=== PATIENT | female | born 1975 | race Caucasian/White ===

== ENCOUNTER → 2017-04-13 | Outpatient (CLI) | payer OTHER | END | disposition home or self-care (01) | LOC: RAD 17:41 | PROVIDERS: ATTEND Genetic Counselor, MS | DX: R29.810 Facial weakness (principal) | CPT/HCPCS: 70450 ==

== ENCOUNTER → 2017-05-25 | Outpatient (CLI) | payer OTHER ==
[~2017-05-25] MED LIST: OMNIPAQUE 350 MG/ML, 75ML BOTTLE ONE
== END | disposition home or self-care (01) ==
LOC: CFH 15:48 → EDSTATUS 16:00
PROVIDERS: ATTEND Psychiatry & Neurology Neurology
DX: M79.89 Other specified soft tissue disorders (principal); G70.01 Myasthenia gravis with (acute) exacerbation
CPT/HCPCS: 71260; Q9967

== ENCOUNTER 2017-07-21 05:14 | Inpatient (IN) | payer OTHER ==
[~2017-07-21] VITALS: Ht 160 cm; Wt 91.0 kg
[2017-07-21] MEDS ORDERED: IMMUNE GLOBULIN IV ONE (05:30)
[2017-07-21] MEDS ORDERED: ONDANSETRON 2MG/ML, 2ML IVPush PRN (05:30)
[2017-07-21] MEDS ORDERED: hydrALAzine 20 MG/ML, 1ML IVPush PRN (05:30)
[2017-07-21] MEDS ORDERED: TRAZODONE 50MG TABLET PO PRN (05:30)
[2017-07-21] MEDS ORDERED: EVACUATED CONTAINER IV ONE (05:30)
[2017-07-21] MEDS ORDERED: SERT50TA PO (05:47)
[2017-07-21] MEDS ORDERED: PYRI60TA2 PO ×2 (05:47→07:28)
[2017-07-21] MEDS ORDERED: prednisone PO (05:47)
[2017-07-21] MEDS ORDERED: TRAZ50TA18 PO (05:47)
[2017-07-21 05:55] VITALS: BP 121/72
[2017-07-21 07:13] VITALS: BP 106/70
[2017-07-21] MEDS: SODIUM CHLORIDE FLUSH 10ML SYR IVF SCH ×2 (09:00→21:24)
[2017-07-21] MEDS: OMEPRAZOLE 20 MG CAPSULE.DR PO SCH (09:07)
[2017-07-21] MEDS: PYRIDOSTIGMINE 60 MG TABLET PO SCH ×3 (09:07→21:23)
[2017-07-21] MEDS ORDERED: DIPHENHYDRAMINE 25 MG CAPSULE ONE (12:51)
[2017-07-21] MEDS: DIPHENHYDRAMINE 25 MG CAPSULE PO SCH (12:54)
[2017-07-21] MEDS: ACETAMINOPHEN 325 MG TABLET PO PRN ×2 (12:54→21:24)
[2017-07-21] MEDS ORDERED: DIPHENHYDRAMINE 25 MG CAPSULE PO ONE (13:00)
[2017-07-21 13:50] VITALS: BP 123/63
[2017-07-21 19:29] VITALS: BP 137/83
[2017-07-22 03:10] VITALS: BP 114/74
[2017-07-22] MEDS: OMEPRAZOLE 20 MG CAPSULE.DR PO SCH (08:15)
[2017-07-22 08:28] VITALS: BP 134/93
[2017-07-22] MEDS ORDERED: EVACUATED CONTAINER IVPB SCH (09:00)
[2017-07-22] MEDS ORDERED: ACETAMINOPHEN 325 MG TABLET PO SCH (09:00)
[2017-07-22] MEDS ORDERED: IMMUNE GLOBULIN IVPB SCH (09:00)
[2017-07-22] MEDS: SODIUM CHLORIDE FLUSH 10ML SYR IVF SCH ×2 (09:12→20:50)
[2017-07-22] MEDS: DIPHENHYDRAMINE 25 MG CAPSULE PO SCH (09:13)
[2017-07-22] MEDS: PYRIDOSTIGMINE 60 MG TABLET PO SCH (09:15)
[2017-07-22] MEDS: SERTRALINE 50MG TABLET PO SCH (09:15)
[2017-07-22 12:50] VITALS: BP 138/81
[2017-07-22] MEDS: PYRIDOSTIGMINE 60 MG TABLET PO PRN ×2 (18:06→20:50)
[2017-07-22] MEDS: ACETAMINOPHEN 325 MG TABLET PO PRN (18:09)
[2017-07-22 19:09] VITALS: BP 143/88
[2017-07-22] MEDS ORDERED: ACETAMINOPHEN 325 MG TABLET PO PRN ×2 (19:30)
[2017-07-22] MEDS ORDERED: hydrALAzine 20 MG/ML, 1ML IVPush PRN ×2 (19:30)
[2017-07-22] MEDS ORDERED: ONDANSETRON 2MG/ML, 2ML IVPush PRN ×2 (19:30)
[2017-07-22] MEDS: TRAZODONE 50MG TABLET PO PRN (20:50)
[2017-07-22] MEDS ORDERED: SODIUM CHLORIDE FLUSH 10ML SYR IVF SCH (21:00)
[2017-07-23 03:36] VITALS: BP 102/60
[2017-07-23] MEDS: OMEPRAZOLE 20 MG CAPSULE.DR PO SCH (07:35)
[2017-07-23 08:00] VITALS: BP 119/83
[2017-07-23] MEDS ORDERED: EVACUATED CONTAINER IVPB SCH (09:00)
[2017-07-23] MEDS ORDERED: IMMUNE GLOBULIN IVPB SCH (09:00)
[2017-07-23] MEDS: ACETAMINOPHEN 325 MG TABLET PO SCH ×2 (09:12→18:31)
[2017-07-23] MEDS: SODIUM CHLORIDE FLUSH 10ML SYR IVF SCH ×2 (09:13→21:32)
[2017-07-23] MEDS: SERTRALINE 50MG TABLET PO SCH (09:14)
[2017-07-23] MEDS: DIPHENHYDRAMINE 25 MG CAPSULE PO SCH (09:35)
[2017-07-23] MEDS: EVACUATED CONTAINER IVPB SCH (10:10)
[2017-07-23] MEDS: IMMUNE GLOBULIN IVPB SCH (10:10)
[2017-07-23] MEDS ORDERED: IBUPROFEN 200 MG TABLET PO ONE (11:00)
[2017-07-23] MEDS: PYRIDOSTIGMINE 60 MG TABLET PO PRN ×2 (15:19→20:31)
[2017-07-23] MEDS: TRAZODONE 50MG TABLET PO PRN (20:31)
[2017-07-23 20:39] VITALS: BP 147/81
[2017-07-23] MEDS ORDERED: METOCLOPRAMIDE 5 MG/ML, 2ML IVPush ONE (21:30)
[2017-07-23] MEDS ORDERED: DIPHENHYDRAMINE 50 MG/ML, 1ML IVPush ONE (21:30)
[2017-07-24 02:00] VITALS: BP 130/90
[2017-07-24] MEDS: ACETAMINOPHEN 325 MG TABLET PO SCH (06:36)
[2017-07-24] MEDS: PYRIDOSTIGMINE 60 MG TABLET PO PRN (07:14)
[2017-07-24 07:24] VITALS: BP 140/91
[2017-07-24] MEDS: OMEPRAZOLE 20 MG CAPSULE.DR PO SCH (08:03)
[2017-07-24] MEDS: SERTRALINE 50MG TABLET PO SCH (08:05)
[2017-07-24] MEDS: SODIUM CHLORIDE FLUSH 10ML SYR IVF SCH (08:06)
[2017-07-24] MEDS: DIPHENHYDRAMINE 25 MG CAPSULE PO SCH (10:28)
[2017-07-24] MEDS: EVACUATED CONTAINER IVPB SCH (10:36)
[2017-07-24] MEDS: IMMUNE GLOBULIN IVPB SCH (10:36)
[2017-07-24 13:06] VITALS: BP 145/85
[2017-07-24] MEDS ORDERED: PRED20TA PO (14:50)
[2017-07-24] MEDS ORDERED: KETO10TA PO (14:58)
== END 2017-07-24 16:12 | disposition home or self-care (01) | DRG 57 ==
LOC: 4NOR 05:14
PROVIDERS: ADMIT Family Medicine; ATTEND Family Medicine
DX: G70.01 Myasthenia gravis with (acute) exacerbation (principal); R13.10 Dysphagia, unspecified; D15.0 Benign neoplasm of thymus; F17.200 Nicotine dependence, unspecified, uncomplicated; Z90.710 Acquired absence of both cervix and uterus
CPT/HCPCS: 94150; J1459; J1200; J2765; J7512; Q0163

== ENCOUNTER 2017-08-02 07:01 | Inpatient (IN) | payer OTHER ==
[2017-08-01 09:41] LABS: HEMATOCRIT 43.8 % (34.6-47.8); WHITE BLOOD COUNT 13.8 x10^3/uL (3.4-10)
[2017-08-01 09:55] LABS: ASPARTATE AMINO TRANSFERASE 48 U/L (15-37); BLOOD UREA NITROGEN 13 mg/dL (7-18)
[~2017-08-02] VITALS: Ht 160 cm; Wt 108.9 kg
[~2017-08-02 07:01] MED LIST changes: +BUPIVACAINE/PF 0.5% ONE; +CLON-364 PO; +IBUP200C5 PO; +KETO10TA PO; +OMEP20TA62 PO; -OMNIPAQUE 350 MG/ML, 75ML BOTTLE ONE; +PRED10TA PO; +PRED20TA PO; +PYRI60TA2 PO; +SERT50TA PO; +TRAZ50TA18 PO; +prednisone PO
[2017-08-02] MEDS ORDERED: LACTATED RINGERS 1,000 ML IV SCH ×2 (07:59→11:30)
[2017-08-02 08:13] VITALS: BP 147/98
[2017-08-02] MEDS ORDERED: FENTANYL PF 100 MCG/2ML ONE ×4 (08:13→11:41)
[2017-08-02] MEDS ORDERED: MIDAZOLAM 1 MG/ML, 2ML ONE (08:13)
[2017-08-02] MEDS ORDERED: ROCURONIUM 10 MG/ML ONE (08:19)
[2017-08-02] MEDS ORDERED: ONDANSETRON 2MG/ML, 2ML ONE (08:19)
[2017-08-02] MEDS ORDERED: SUCCINYLCHOLINE 20 MG/ML, 10ML ONE (08:19)
[2017-08-02] MEDS ORDERED: LIDOCAINE GEL 2%, 5ML ONE ×2 (08:19→11:04)
[2017-08-02] MEDS ORDERED: CEFAZOLIN 1,000 MG ONE (08:19)
[2017-08-02] MEDS ORDERED: DEXAMETHASONE 4 MG/ML, 1ML ONE (08:19)
[2017-08-02] MEDS ORDERED: PROPOFOL 10 MG/ML, 20ML ONE (08:19)
[2017-08-02] MEDS ORDERED: GLYCOPYRROLATE 0.2MG/1ML, 5ML ONE (08:19)
[2017-08-02] MEDS ORDERED: NEOSTIGMINE 1 MG/ML, 10ML ONE (08:19)
[2017-08-02] MEDS ORDERED: HYDROCORTISONE 100 MG INJ. ONE (09:17)
[2017-08-02] MEDS ORDERED: SUGAMMADEX 200 MG/2 ML IVPush ONE (09:21)
[2017-08-02] MEDS ORDERED: ONDANSETRON 2MG/ML, 2ML IVPush PRN ×2 (09:30→11:30)
[2017-08-02] MEDS ORDERED: ACETAMINOPHEN 325 MG TABLET PO PRN ×2 (09:30→11:30)
[2017-08-02] MEDS ORDERED: LORazepam 2 MG/ML, 1ML IVPush PRN (09:30)
[2017-08-02] MEDS ORDERED: LABETALOL 5MG/ML, 20ML IV PRN (09:30)
[2017-08-02] MEDS ORDERED: MEPERIDINE/PF 25MG/0.5ML IVPush PRN (09:30)
[2017-08-02] MEDS ORDERED: ALBUTEROL/IPRATROPIUM 2.5MG/0.5MG, 3 ML NPPB PRN (09:30)
[2017-08-02] MEDS ORDERED: MIDAZOLAM 1 MG/ML, 2ML IV PRN (09:30)
[2017-08-02] MEDS ORDERED: DIAZEPAM 5 MG/ML, 2ML IVPush PRN (09:30)
[2017-08-02] MEDS ORDERED: hydrALAzine 20 MG/ML, 1ML IV PRN (09:30)
[2017-08-02] MEDS ORDERED: OXYcodone 5 MG/5 ML ORAL.SOL UDC PO PRN (09:30)
[2017-08-02] MEDS ORDERED: PROMETHAZINE 25 MG/ML, 1ML IV PRN (09:30)
[2017-08-02] MEDS ORDERED: LIDOCAINE-MPF 2% ,5ML ONE ×2 (10:12)
[2017-08-02] MEDS ORDERED: OMEPRAZOLE 20 MG CAPSULE.DR PO PRN (11:30)
[2017-08-02] MEDS ORDERED: DIPHENHYDRAMINE 50 MG/ML, 1ML IVPush PRN (11:30)
[2017-08-02] MEDS ORDERED: ENALAPRILAT 1.25 MG/ML, 2ML IVPush PRN (11:30)
[2017-08-02] MEDS ORDERED: DIPHENHYDRAMINE 25 MG CAPSULE PO PRN (11:30)
[2017-08-02] MEDS ORDERED: hydrALAzine 20 MG/ML, 1ML IVPush PRN (11:30)
[2017-08-02] MEDS ORDERED: ACETAMINOPHEN 650 MG SUPP PR PRN (11:30)
[2017-08-02] MEDS: FENTANYL PF 100 MCG/2ML IV PRN ×5 (11:42→12:17)
[2017-08-02] MEDS ORDERED: PYRIDOSTIGMINE 5 MG/ML IVPush ONE (12:00)
[2017-08-02] MEDS ORDERED: ACETAMINOPHEN 650 MG/20.3 ML UDC ONE (12:06)
[2017-08-02] MEDS ORDERED: OXYcodone 5 MG/5 ML ORAL.SOL UDC ONE (12:06)
[2017-08-02] MEDS ORDERED: HYDROmorphone 2 MG/ML, 1ML ONE (12:28)
[2017-08-02] MEDS: HYDROmorphone 1 MG/ML, 1ML IV PRN ×4 (12:30→13:11)
[2017-08-02] MEDS ORDERED: LORazepam 2 MG/ML, 1ML ONE (12:49)
[2017-08-02 13:42] VITALS: BP 167/93
[2017-08-02] MEDS: morphine SULFATE 10 MG/ML, 1ML IVPush PRN ×5 (14:40→22:50)
[2017-08-02] MEDS: CEFAZOLIN PMX 2GM/50ML 50 ML IVPB SCH (18:42)
[2017-08-02 19:28] VITALS: BP 122/80
[2017-08-02] MEDS: PYRIDOSTIGMINE 60 MG TABLET PO PRN (20:10)
[2017-08-02] MEDS: HYDROcodone/APAP 5/325 TABLET PO PRN (20:10)
[2017-08-02] MEDS ORDERED: TRAZODONE 50MG TABLET PO SCH (21:00)
[2017-08-02 23:35] VITALS: BP 112/74
[2017-08-03] MEDS: CEFAZOLIN PMX 2GM/50ML 50 ML IVPB SCH (00:22)
[2017-08-03] MEDS: HYDROcodone/APAP 5/325 TABLET PO PRN ×2 (00:27→09:27)
[2017-08-03] MEDS: morphine SULFATE 10 MG/ML, 1ML IVPush PRN ×3 (02:04→11:18)
[2017-08-03] MEDS: PYRIDOSTIGMINE 60 MG TABLET PO PRN ×4 (02:05→18:58)
[2017-08-03 03:46] VITALS: BP 121/79
[2017-08-03 08:00] VITALS: BP 124/80
[2017-08-03] MEDS ORDERED: ENOXAPARIN 40 MG/0.4 ML SQ SCH (09:00)
[2017-08-03] MEDS ORDERED: SERTRALINE 50MG TABLET PO SCH (09:00)
[2017-08-03 14:00] VITALS: BP 107/66
[2017-08-03] MEDS: OXYcodone/APAP 5/325MG TABLET PO PRN ×2 (14:34→18:58)
[2017-08-03 19:10] VITALS: BP 135/81
== END 2017-08-03 19:15 | disposition home or self-care (01) | DRG 802 ==
LOC: ORIP 07:01 → 4NOR 13:44
PROVIDERS: ADMIT Thoracic Surgery (Cardiothoracic Vascular Surgery); ATTEND Thoracic Surgery (Cardiothoracic Vascular Surgery)
PROC: 07TM4ZZ Resection of Thymus, Percutaneous Endoscopic Approach (ICD-10-PCS; principal; 2017-08-02 09:00)
DX: D15.0 Benign neoplasm of thymus (principal); E43 Unspecified severe protein-calorie malnutrition; G70.00 Myasthenia gravis without (acute) exacerbation; Z90.710 Acquired absence of both cervix and uterus; Z90.721 Acquired absence of ovaries, unilateral; Z80.3 Family history of malignant neoplasm of breast; Z80.2 Family history of malignant neoplasm of other respiratory and intrathoracic organs; Z80.1 Family history of malignant neoplasm of trachea, bronchus and lung; Z80.0 Family history of malignant neoplasm of digestive organs
CPT/HCPCS: 36415; 71010; 80053; 85025; 86850; 86900; 88307; 88341; 88342; 93005; C1729; J0690; J1100; J1170; J1650; J2250; J2405; J2704; J2710; J3010; J3490; G0461; J0330; J1720; J2060; J2270; J7120; J7512; Q0163

== ENCOUNTER 2017-10-02 22:34 | Inpatient (IN) | payer OTHER ==
[~2017-10-02] VITALS: Ht 162.6 cm; Wt 102.1 kg
[~2017-10-02 22:34] MED LIST changes: -BUPIVACAINE/PF 0.5% ONE
[2017-10-03 00:27] LABS: BASOPHILS # (AUTO) 0.04 x10^3/uL (0-0.1); BASOPHILS % (AUTO) 0 % (0-1); EOSINOPHILS # (AUTO) 0.02 x10^3/uL (0-0.4); EOSINOPHILS % (AUTO) 0 % (1-7); LYMPHOCYTES # (AUTO) 2.09 x10^3/uL (1-3.4); LYMPHOCYTES % (AUTO) 18 % (22-44); MD NO; MEAN CORPUSCULAR HEMOGLOBIN 31.4 pg (27.0-34.8); MEAN CORPUSCULAR HGB CONC 34.1 g/dL (32.4-35.8); MEAN CORPUSCULAR VOLUME 91.9 fL (80-100); MEAN PLATELET VOLUME 7.3 fL (7.4-10.4); MONOCYTES # (AUTO) 0.75 x10^3/uL (0.2-0.8); MONOCYTES % (AUTO) 6 % (2-9); NEUTROPHILS # (AUTO) 9.03 x10^3/uL (1.8-6.8); NEUTROPHILS % (AUTO) 76 % (42-75); PLATELET COUNT 201 x10^3/uL (130-400); RED CELL DISTRIBUTION WIDTH 12.5 % (9.6-15.2)
[2017-10-03 00:35] LABS: ANION GAP 8 mmol/L (5-15); CALCIUM 8.8 mg/dL (8.5-10.1); CHLORIDE 109 mmol/L (98-107); CREATININE 0.82 mg/dL (0.55-1.02)
[2017-10-03 00:36] LABS: ALBUMIN 3.7 g/dL (3.4-5.0)
[2017-10-03 00:40] LABS: TROPONIN I < 0.015 ng/mL (0.000-0.045)
[2017-10-03] MEDS ORDERED: SODIUM CHLORIDE 0.9% 1,000 ML IV ONE (01:40)
[2017-10-03] MEDS ORDERED: ONDANSETRON 2MG/ML, 2ML ONE (01:55)
[2017-10-03] MEDS ORDERED: KETOROLAC 30 MG/1 ML ONE (01:55)
[2017-10-03] MEDS ORDERED: KETOROLAC 30 MG/1 ML IVPush ONE (02:00)
[2017-10-03] MEDS ORDERED: ONDANSETRON 2MG/ML, 2ML IVPush PRN (02:00)
[2017-10-03] MEDS ORDERED: BUPR100T8 PO (02:06)
[2017-10-03] MEDS ORDERED: [UNRECOGNIZED DRUG - CODE] PO (02:08)
[2017-10-03] MEDS ORDERED: MYCO500T3 PO (02:11)
[2017-10-03 03:00] VITALS: BP 125/74
[2017-10-03 08:23] VITALS: BP 123/86
[2017-10-03] MEDS ORDERED: IMMUNE GLOB (GAMUNEX) 10GM/100ML IV ONE (09:00)
[2017-10-03] MEDS ORDERED: ACETAMINOPHEN 325 MG TABLET PO ONE (09:00)
[2017-10-03] MEDS ORDERED: DIPHENHYDRAMINE 25 MG CAPSULE PO ONE (09:00)
[2017-10-03] MEDS: ENOXAPARIN 40 MG/0.4 ML SQ SCH (09:30)
[2017-10-03] MEDS: PYRIDOSTIGMINE 180 MG PO SCH ×3 (09:30→20:32)
[2017-10-03] MEDS ORDERED: IMMUNE GLOBULIN IV ONE (09:30)
[2017-10-03 13:46] LABS: CLOSTRIDIUM DIFFICILE ANTIGEN NEGATIVE; CLOSTRIDIUM DIFFICILE TOXIN NEGATIVE (Negative)
[2017-10-03 15:33] VITALS: BP 138/79
[2017-10-03] MEDS ORDERED: OMEPRAZOLE 20 MG CAPSULE.DR PO PRN (17:30)
[2017-10-03 17:46] LABS: MICROSCOPIC INDICATED
[2017-10-03 17:57] LABS: CULTURE INDICATED? NO
[2017-10-03 20:17] VITALS: BP 119/80
[2017-10-03] MEDS: TRAZODONE 50MG TABLET PO SCH (20:32)
[2017-10-03] MEDS: BUPROPION SR 100 MG TABLET PO SCH (20:32)
[2017-10-04 01:20] VITALS: BP 132/84
[2017-10-04] MEDS ORDERED: IBUPROFEN 200 MG TABLET PO ONE (06:00)
[2017-10-04] MEDS ORDERED: LORATADINE/PSE 5/120MG TAB.ER.12H PO ONE (06:00)
[2017-10-04] MEDS: FLUTICASONE NASAL SPRAY 16GM NAS SCH ×2 (06:04→20:59)
[2017-10-04] MEDS: PYRIDOSTIGMINE 180 MG PO SCH ×3 (06:16→21:00)
[2017-10-04 06:47] VITALS: BP 128/80
[2017-10-04] MEDS ORDERED: IMMUNE GLOB (GAMUNEX) 10GM/100ML IV ONE (08:00)
[2017-10-04] MEDS ORDERED: AZITHROMYCIN 500 MG TABLET PO ONE (08:30)
[2017-10-04] MEDS ORDERED: IMMUNE GLOBULIN 50 GM in VIAL 0 EACH IV ONE (08:30)
[2017-10-04] MEDS: ENOXAPARIN 40 MG/0.4 ML SQ SCH (09:30)
[2017-10-04] MEDS: BUPROPION SR 100 MG TABLET PO SCH ×2 (10:44→21:02)
[2017-10-04 11:27] VITALS: BP 122/75
[2017-10-04] MEDS ORDERED: ACETAMINOPHEN 325 MG TABLET PO ONE (11:30)
[2017-10-04] MEDS ORDERED: DIPHENHYDRAMINE 25 MG CAPSULE PO ONE (11:30)
[2017-10-04 11:53] LABS: RAPID INFLUENZA A Negative (Negative); RAPID INFLUENZA B Negative (Negative)
[2017-10-04] MEDS ORDERED: ASA/APAP/ CAFFEINE TABLET PO PRN (13:00)
[2017-10-04 13:02] VITALS: BP 127/85
[2017-10-04] MEDS: AZITHROMYCIN 250 MG TABLET PO SCH (13:07)
[2017-10-04 18:57] VITALS: BP 141/84
[2017-10-04] MEDS: TRAZODONE 50MG TABLET PO SCH (21:01)
[2017-10-05 00:53] VITALS: BP 137/93
[2017-10-05] MEDS ORDERED: ONDANSETRON 4 MG TABLET PO ONE (01:00)
[2017-10-05 07:24] VITALS: BP 125/85
[2017-10-05] MEDS ORDERED: IMMUNE GLOBULIN 50 GM in VIAL 0 EACH IV ONE (08:00)
[2017-10-05] MEDS ORDERED: ONDANSETRON 4 MG TABLET PO PRN (08:00)
[2017-10-05] MEDS ORDERED: DIPHENHYDRAMINE 25 MG CAPSULE PO ONE (08:00)
[2017-10-05] MEDS ORDERED: ACETAMINOPHEN 325 MG TABLET PO ONE (08:00)
[2017-10-05] MEDS ORDERED: IMMUNE GLOB (GAMUNEX) 10GM/100ML IV ONE (08:00)
[2017-10-05] MEDS: PYRIDOSTIGMINE 180 MG PO SCH (09:00)
[2017-10-05] MEDS: AZITHROMYCIN 250 MG TABLET PO SCH (09:12)
[2017-10-05] MEDS: FLUTICASONE NASAL SPRAY 16GM NAS SCH (09:13)
[2017-10-05] MEDS: BUPROPION SR 100 MG TABLET PO SCH (09:14)
[2017-10-05] MEDS: ENOXAPARIN 40 MG/0.4 ML SQ SCH (09:14)
[2017-10-05 10:49] VITALS: BP 119/81
[2017-10-05 11:05] VITALS: BP 126/84
[2017-10-05 13:02] VITALS: BP 134/88
== END 2017-10-05 16:19 | disposition home or self-care (01) | DRG 57 ==
LOC: ED 10-03 00:46 → EDIP 10-03 01:40 → 5SO 10-03 02:50 → DCLOUNGE 10-05 16:07
PROVIDERS: ADMIT Surgery; ATTEND Surgery
DX: G70.01 Myasthenia gravis with (acute) exacerbation (principal); F32.9 Major depressive disorder, single episode, unspecified; G47.00 Insomnia, unspecified; J20.9 Acute bronchitis, unspecified; K21.9 Gastro-esophageal reflux disease without esophagitis; Z80.3 Family history of malignant neoplasm of breast; Z80.0 Family history of malignant neoplasm of digestive organs; Z80.51 Family history of malignant neoplasm of kidney; Z80.8 Family history of malignant neoplasm of other organs or systems
CPT/HCPCS: 36415; 71045; 80048; 81001; 82040; 83735; 84443; 84484; 85025; 87070; 87205; 87324; 87400; 93005; 96374; 96375; J1561; J1885; J2405; Q0162; J7512; J7517; Q0163

== ENCOUNTER → 2017-11-29 | Outpatient (CLI) | payer OTHER ==
[~2017-11-29] MED LIST changes: +BUPR100T8 PO; +MYCO500T3 PO; +OMNIPAQUE 350 MG/ML, 75ML BOTTLE ONE; +[UNRECOGNIZED DRUG - CODE] PO
== END ==
LOC: CFH 15:17
PROVIDERS: ATTEND Psychiatry & Neurology Neurology
DX: E32.8 Other diseases of thymus (principal); Z98.890 Other specified postprocedural states
CPT/HCPCS: 71260; Q9967

== ENCOUNTER → 2018-01-18 | Outpatient (CLI) | payer OTHER ==
[~2018-01-18] MED LIST changes: -OMNIPAQUE 350 MG/ML, 75ML BOTTLE ONE
== END ==
LOC: CFH 07:08
PROVIDERS: ATTEND Genetic Counselor, MS
DX: Z12.31 Encounter for screening mammogram for malignant neoplasm of breast (principal); Z80.3 Family history of malignant neoplasm of breast
CPT/HCPCS: 77067

== ENCOUNTER 2019-02-22 09:24 | Outpatient (CLI) | payer OTHER ==
[~2019-02-22 09:24] MED LIST changes: +BIOT1TAB2 PO; +CALC500T93 PO; +CHOL2000 PO; -CLON-364 PO; +CLON0.5T11 PO; +IBUP-1623 PO; -IBUP200C5 PO; +LACT1CAP35 PO; -TRAZ50TA18 PO; +TRAZ50TA66 PO
[2019-02-22] MEDS ORDERED: SINCALIDE (KINEVAC) 5 MCG ONE (09:29)
== END 2019-02-22 23:59 | disposition home or self-care (01) ==
LOC: PETCFH 09:24
PROVIDERS: ATTEND Thoracic Surgery (Cardiothoracic Vascular Surgery)
DX: R10.11 Right upper quadrant pain (principal)
CPT/HCPCS: 78227; A9537; J2805